=== PATIENT | female | born 1945 | race Caucasian/White ===

== ENCOUNTER 2016-12-07 16:20 | Emergency (ER) | payer OTHER ==
[2016-12-07 16:27] VITALS: BP 140/66; PULSE 94; TEMP 99; BMI 25.6
--- NOTE | 2016-12-07 17:16 | PDOC ---
History of Present Illness - General Chief Complaint: Injury Stated Complaint: FOOT INJURY Time Seen by Provider: 12/07/16 16:57 History Source: Patient Exam Limitations: No Limitations - History of Present Illness Initial Comments: 12/07/16 17:13 71 yr female with 3 days pain to right foot. pt unsure if she twisted her foot has pain to the side. no fever no chills. Occurred: reports: other (3 days) Past History - Past Medical History Allergies/Adverse Reactions: Allergies Allergy/AdvReac Type Severity Reaction Status Date / Time No Known Allergies Allergy Verified 12/07/16 16:23 Home Medications: Ambulatory Orders Amoxicillin - [Amoxicillin 500mg Capsule -] 500 mg PO TID 12/07/16 Thyroid Disease: Yes Other medical history: op - Suicide/Smoking/Psychosocial Hx Anxiety: No Suicidal Ideation: No Smoking History: Never smoked Have you smoked in the past 12 months: No Information on smoking cessation initiated: No Hx Alcohol Use: No Drug/Substance Use Hx: No Substance Use Type: None Review of Systems - Review of Systems Able to Perform ROS?: Yes Is the patient limited Colombian proficient: No Constitutional: No: Symptoms Reported HEENTM: No: Symptoms Reported Respiratory: No: Symptoms reported Cardiac (ROS): No: Symptoms Reported ABD/GI: No: Symptoms Reported : No: Symptoms Reported Musculoskeletal: Yes: See HPI *Physical Exam - Vital Signs Last Vital Signs Temp Pulse Resp BP Pulse Ox 99.0 F 94 H 18 140/66 100 12/07/16 16:24 12/07/16 16:24 12/07/16 16:24 12/07/16 16:24 12/07/16 16:24 - Physical Exam General Appearance: Yes: Nourished, Appropriately Dressed HEENT: positive: EOMI, ITZEL Extremity: positive: Normal Capillary Refill, Tender (base of fifth toe , nv intact FROm ) Integumentary: positive: Normal Color, Dry, Warm Neurologic: positive: Fully Oriented, Alert, Normal Mood/Affect, Normal Response , Motor Strength 5/5 Procedures - Splinting Progress: 12/07/16 18:00 ismael wrap hard sole shoe to right foot 12/07/16 19:13 12/10/16 07:13 ED Treatment Course - RADIOLOGY Radiology Studies Ordered: Category Date Time Status FOOT-RIGHT [RAD] Stat Radiology 12/07/16 17:04 Ordered Medical Decision Making - Medical Decision Making 12/10/16 07:12 cc: foot pain unsure of when injured will r/o fracture with xray pt is ambulatory with her daughter *DC/Admit/Observation/Transfer Diagnosis at time of Disposition: Foot fracture, right Qualifiers: Encounter type: initial encounter Fracture type: closed Qualified Code(s): S92.901A - Unspecified fracture of right foot, initial encounter for closed fracture - Discharge Dispostion Disposition: HOME Condition at time of disposition: Good - Referrals Referrals: Nunu Graham [Primary Care Provider] - Kvng Jarrett MD [Staff Physician] - Chito Rainey MD [Staff Physician] - - Patient Instructions Additional Instructions: follow with the orthopedist next week for follow up either or use the ismael wrap and the hard sole shoe while awake remove to bathe and sleep take motrin for pain as directed (over the counter advil, ibuprofen or motrin) or naprosyn if you already have at home
== END 2016-12-07 18:11 | disposition home or self-care (01) ==
LOC: JERFT 16:20
DX: S92.354A Nondisplaced fracture of fifth metatarsal bone, right foot, initial encounter for closed fracture (principal); X58.XXXA Exposure to other specified factors, initial encounter; Y93.9 Activity, unspecified; Y92.89 Other specified places as the place of occurrence of the external cause
CPT/HCPCS: 73630-TC-RT; 99281-25

== ENCOUNTER 2017-12-28 10:41 | Inpatient (IN) | payer MEDICARE, OTHER ==
--- NOTE | 2017-12-28 10:55 | PDOC ---
History of Present Illness - History of Present Illness Initial Comments: This patient is a 72 year old Mohawk speaking female with PMHx of Hypothyroidism, osteoarthritis, HLD, several broken bones (left humerus, left leg, right wrist-w/residual deformity), who was BIBA and presents today with right leg pain s/p mechanical fall. Patient states that she is visiting from [place] and normally comes every 3 months or so. She states that she was walking down the stairs when she missed the last step, falling on her right side. She is now complaining of RLE pain. She states that she normally ambulates without a walker or cane but is currently not able to ambulate, secondary to pain. She denies taking any anticoagulation medications. She denies any loss of consciousness, hitting her head. She denies any current headache, neck pain, or back pain. She denies recent fever, chills, palpitations , or shortness of breath. PCP: Paulino layne. Surgical Hx: Left leg and arm. <Roxy Brown - Last Filed: 12/28/17 11:30> <Melissa Mccann - Last Filed: 12/28/17 13:29> <Leandra Sifuentes - Last Filed: 12/28/17 13:32> - General Chief Complaint: Injury Stated Complaint: Injury Time Seen by Provider: 12/28/17 10:50 Past History <Roxy Brown - Last Filed: 12/28/17 11:30> <Melissa Mccann - Last Filed: 12/28/17 13:29> - Past Medical History Thyroid Disease: Yes - Suicide/Smoking/Psychosocial Hx Smoking History: Never smoked Have you smoked in the past 12 months: No Hx Alcohol Use: No Drug/Substance Use Hx: No Substance Use Type: None <Leandra Sifuentes - Last Filed: 12/28/17 13:32> - Past Medical History Allergies/Adverse Reactions: Allergies Allergy/AdvReac Type Severity Reaction Status Date / Time No Known Allergies Allergy Verified 12/28/17 11:00 Home Medications: Ambulatory Orders Amoxicillin - [Amoxicillin 500mg Capsule -] 500 mg PO TID 12/07/16 Review of Systems - Review of Systems Comments:: GENERAL/CONSTITUTIONAL: No fever or chills. No weakness. HEAD, EYES, EARS, NOSE AND THROAT: No change in vision. No ear pain or discharge. No sore throat. CARDIOVASCULAR: No chest pain or shortness of breath. RESPIRATORY: No cough, wheezing, or hemoptysis. GASTROINTESTINAL: No nausea, vomiting, diarrhea or constipation. GENITOURINARY: No dysuria, frequency, or change in urination. MUSCULOSKELETAL: +right leg pain. No neck or back pain. SKIN: No rash NEUROLOGIC: No headache, vertigo, loss of consciousness, or change in strength/ sensation. ENDOCRINE: No increased thirst. No abnormal weight change. HEMATOLOGIC/LYMPHATIC: No anemia, easy bleeding, or history of blood clots. ALLERGIC/IMMUNOLOGIC: No hives or skin allergy. <Roxy Brown - Last Filed: 12/28/17 11:30> *Physical Exam - Vital Signs Last Vital Signs Temp Pulse Resp BP Pulse Ox 99.3 F 71 18 143/74 143 H 12/28/17 10:45 12/28/17 10:45 12/28/17 10:45 12/28/17 10:45 12/28/17 10:45 - Physical Exam Comments: GENERAL: Awake, alert, and fully oriented, in no acute distress HEAD: No signs of trauma LUNGS: Breath sounds equal, clear to auscultation bilaterally. No wheezes, and no crackles HEART: Regular rate and rhythm, normal S1 and S2, no murmurs, rubs or gallops ABDOMEN: Soft, nontender, normoactive bowel sounds. No guarding, no rebound. No masses EXTREMITIES: Lower right extremity tenderness with log roll, tenderness to palpation of RLE specifically right lateral hip, femur and right knee. No edema. No clubbing or cyanosis. No cords, no erythema. NEUROLOGICAL: Cranial nerves II through XII grossly intact. Normal speech. Patient unable to ambulate, secondary to pain. SKIN: Warm, Dry, normal turgor, no rashes or lesions noted. <Roxy Brown - Last Filed: 12/28/17 11:30> - Vital Signs Last Vital Signs Temp Pulse Resp BP Pulse Ox 99.3 F 71 18 143/74 98 12/28/17 10:45 12/28/17 10:45 12/28/17 10:45 12/28/17 10:45 12/28/17 11:10 <Melissa Mccann - Last Filed: 12/28/17 13:29> Heart Score/ECG Review - ECG Intrepretation Comment:: 12/28/17 12:50 sinus at 65, l axis deviation, t wave inversions V2-3, abnl ekg <Leandra Sifuentes - Last Filed: 12/28/17 13:32> ED Treatment Course - LABORATORY CBC & Chemistry Diagram: 12/28/17 11:10 12/28/17 11:10 - ADDITIONAL ORDERS Additional order review: Laboratory Results 12/28/17 11:10 PT with INR 11.70 INR 0.99 PTT (Actin FS) 24.7 L 12/28/17 11:10 RBC 4.62 MCV 84.7 MCHC 32.7 RDW 15.0 MPV 7.8 Neutrophils % 65.6 Lymphocytes % 23.3 Monocytes % 9.4 Eosinophils % 1.0 Basophils % 0.7 <Roxy Brown - Last Filed: 12/28/17 11:30> - LABORATORY CBC & Chemistry Diagram: 12/28/17 11:10 12/28/17 11:10 - ADDITIONAL ORDERS Additional order review: Laboratory Results 12/28/17 12/28/17 11:10 11:10 PT with INR 11.70 INR 0.99 PTT (Actin FS) 24.7 L Sodium 138 Potassium 3.3 L Chloride 102 Carbon Dioxide 28 Anion Gap 7 L BUN 18 Creatinine 0.9 Creat Clearance w eGFR > 60 Random Glucose 168 H Calcium 7.8 L Total Bilirubin 0.4 AST 20 ALT 24 Alkaline Phosphatase 50 Total Protein 6.8 Albumin 3.1 L TSH 0.27 L 12/28/17 11:10 RBC 4.62 MCV 84.7 MCHC 32.7 RDW 15.0 MPV 7.8 Neutrophils % 65.6 Lymphocytes % 23.3 Monocytes % 9.4 Eosinophils % 1.0 Basophils % 0.7 - Medications Given in the ED: ED Medications Discontinued Medications Generic Name Dose Route Start Last Admin Trade Name Freq PRN Reason Stop Dose Admin Acetaminophen 1,000 mg 12/28/17 11:22 12/28/17 11:46 Ofirmev Injection - IVPB 12/28/17 11:23 1,000 mg ONCE ONE Administration Morphine Sulfate 2 mg 12/28/17 11:22 12/28/17 11:46 Morphine Injection - IVPUSH 12/28/17 11:23 2 mg ONCE ONE Administration <Melissa Mccann - Last Filed: 12/28/17 13:29> - LABORATORY CBC & Chemistry Diagram: 12/28/17 11:10 12/28/17 11:10 <Leandra Sifuentes - Last Filed: 12/28/17 13:32> Medical Decision Making - Medical Decision Making 12/28/17 12:47 Call placed to orthopedics data power consultant, case was discussed with SERGIO Lamar. 1:04pm Call placed to Dr. De Los Santos's office, data power consultant admitting doctor, awaiting call back. 1:30pm Call placed to Dr. De Los Santos's cell phone, case was discussed. Documentation prepared by Melissa Mccann, acting as medical practice manager for Leandra Sifuentes DO. <Melissa Mccann - Last Filed: 12/28/17 13:29> - Medical Decision Making 12/28/17 11:48 a/p: 72yo female with hx of osteoporosis and broken LLE/hypothyroid who is visiting from [place] presents with RLE pain -pt with mechanical fall at home. -states she was walking down the stairs when she missed the last step and fell on her R side -denies hitting her head or LOC -no neck or back pain -pt c/o RLE pain -pt with pain to R lateral hip/inner groin, distal femur -concern for hip/femur fx -will send preop labs, ekg, cxr, ua, ucx, silva -xray chest, hip/pelvis R/femur/knee right -pt is not on antiplts/anticoags -will medicate for pain 12/28/17 12:49 pt with midshaft femure fracture discussed with David the PA for ortho - NPO after midnight will see the patient today last po intake was 930a 12/28/17 13:08 david the ortho pa is at the bedside 12/28/17 13:[address] De Los Santos who accepts pt to service <Leandra Sifuentes - Last Filed: 12/28/17 13:32> *DC/Admit/Observation/Transfer - Attestations Scribe Attestion: 12/28/17 11:39 Documentation prepared by Roxy Brown, acting as medical practice manager for Leandra Sifuentes DO. <Roxy Brown - Last Filed: 12/28/17 11:30> <Melissa Mccann - Last Filed: 12/28/17 13:29> - Discharge Dispostion Decision to Admit order: Yes - Attestations Physician Attestion: 12/28/17 13:32 I, Dr. Leandra Sifuentes, DO, attest that this document has been prepared under my direction and personally reviewed by me in its entirety. I further attest, that it accurately reflects all work, treatment, procedures and medical decision -making performed by me. <Leandar Sifuentes - Last Filed: 12/28/17 13:32> Diagnosis at time of Disposition: Femur fracture, right - Discharge Dispostion Condition at time of disposition: Fair
[2017-12-28 11:14] LABS: BASO % 0.7 % (0-2.0); HEMATOCRIT 39.1 % (32.4-45.2); HEMOGLOBIN 12.8 GM/dL (10.7-15.3); LYMPH % 23.3 % (8-40); MCH 27.7 pg (25.7-33.7); MCHC 32.7 g/dl (32.0-36.0); MEAN CELL VOLUME 84.7 fl (80-96); MEAN PLT VOLUME 7.8 fl (7.5-11.1); MONO % 9.4 % (3.8-10.2); NEUT % 65.6 % (42.8-82.8); PLATELET COUNT 195 K/MM3 (134-434); RBC 4.62 M/mm3 (3.60-5.2); WHITE BLOOD COUNT 10.7 K/mm3 (4.0-10.0)
[2017-12-28] MEDS ORDERED: ACETAMINOPHEN 1000 MG/100 ML VIAL (NON FORMULARY) IVPB ONE (11:22)
[2017-12-28] MEDS ORDERED: morphine CARPU-JECT 2 MG/1 ML DISP.SYRIN IVPUSH ONE (11:22)
[2017-12-28 11:25] LABS: INR 0.99 (0.83-1.09); PROTHROMBIN TIME (PATIENT) 11.7 SEC (9.7-13.0)
[2017-12-28 11:27] LABS: ACTIVATED PTT 24.7 SECONDS (25.2-36.5)
[2017-12-28] MEDS ORDERED: morphine SULFATE 4 MG/ML VIAL ONE ×2 (11:41→15:32)
[2017-12-28 12:10] LABS: ALBUMIN 3.1 g/dl (3.4-5.0); ALK PHOS 50 U/L (45-117); ANION GAP 7 MMOL/L (8-16); BILIRUBIN,TOTAL 0.4 mg/dL (0.2-1); BLOOD UREA NITROGEN 18 mg/dL (7-18); CALCIUM 7.8 mg/dL (8.5-10.1); CHLORIDE 102 mmol/L (98-107); CO2 28 mmol/L (21-32); CREATININE 0.9 mg/dL (0.55-1.3); GLUCOSE,RANDOM 168 mg/dL (74-106); POTASSIUM 3.3 mmol/L (3.5-5.1); SGOT/AST 20 U/L (15-37); SGPT/ALT 24 U/L (13-61); SODIUM 138 mmol/L (136-145); TOT PROT 6.8 g/dl (6.4-8.2)
[2017-12-28] MEDS ORDERED: SODIUM CHLORIDE 0.9% 1000 ML INFUS.BAG IV ONE (12:50)
--- NOTE | 2017-12-28 13:15 | CON.ORTH ---
Consult Reason for Consultation:: right femur fx - Alcohol/Substance Use Hx Alcohol Use: No - Smoking History Smoking history: Never smoked Have you smoked in the past 12 months: No Home Medications - Allergies Allergies/Adverse Reactions: Allergies Allergy/AdvReac Type Severity Reaction Status Date / Time No Known Allergies Allergy Verified 12/28/17 11:00 - Home Medications Home Medications: Ambulatory Orders Amoxicillin - [Amoxicillin 500mg Capsule -] 500 mg PO TID 12/07/16 Physical Exam for Ortho Vital Signs: Vital Signs Temperature 99.3 F 12/28/17 10:45 Pulse Rate 71 12/28/17 10:45 Respiratory Rate 18 12/28/17 10:45 Blood Pressure 143/74 12/28/17 10:45 O2 Sat by Pulse Oximetry (%) 98 12/28/17 11:10 Labs: CBC, BMP 12/28/17 11:10 12/28/17 11:10 INR, PTT INR 0.99 (0.83-1.09) 12/28/17 11:10 - Lower Extremity Hip: Yes: Right, Decreased ROM, Leg Externally Rotated, Leg Shortened Leg: Yes: Right, Limited ROM, Pain, Swelling, Tenderness, Other (nvi) Imaging - Results X-ray: Report Reviewed, Image Reviewed Assessment/Plan 72 year old Bangladeshi speaking female with PMHx of Hypothyroidism, osteoarthritis , HLD, several broken bones (left humerus, left leg, right wrist-w/residual deformity), who was BIBA and presents today with right leg pain s/p mechanical fall. Patient states that she is visiting from [place] and normally comes every 3 months or so. She states that she was walking down the stairs when she missed the last step, falling on her right side. She is now complaining of RLE pain. She states that she normally ambulates without a walker or cane but is currently not able to ambulate, secondary to pain. She denies taking any anticoagulation medications. Denies numbness/tingling. a/p right displaced femoral shaft fx Risks and benefits were d/w pt and family in detail OR tomorrow for Right femur IM nail Surgical clearance NPO after midnight pain control d/w Dr. Arce
[2017-12-28 13:28] LABS: URINE APPEARANCE CLEAR; URINE BILIRUBIN NEGATIVE (<2.0 mg/dL); URINE COLOR STRAW; URINE GLUCOSE (UA) 1+ (NEGATIVE); URINE KETONE NEGATIVE (NEGATIVE); URINE LEUK ESTERASE NEGATIVE (NEGATIVE); URINE NITRITE NEGATIVE (NEGATIVE); URINE PROTEIN NEGATIVE (NEGATIVE); URINE UROBILINOGEN NEGATIVE mg/dL (0.2-1.0)
--- NOTE | 2017-12-28 15:23 | CON.CARD ---
Consult Consult Specialty:: Cardiology Referred by:: ER Reason for Consultation:: Pre-operative CV evaluation - History of Present Illness Chief Complaint: Post fall and right hip pain History of Present Illness: 72 year old Telugu speaking female with PMHx of Hypothyroidism, osteoarthritis , HLD, several broken bones (left humerus, left leg, right wrist-w/residual deformity), who was BIBA today with right leg pain s/p mechanical fall without near or true syncope. She states that she was walking down the stairs when she missed the last step, falling on her right side. She is now complaining of RLE pain. She states that she normally ambulates without a walker or cane but is currently not able to ambulate, secondary to pain. Regarding cardiovascular symptoms, she denies chest pain, dyspnea, near or true syncope, palpitations, orthopnea, PND, LE edema or decrease exercise capacity. - History Source History Provided By: Family Member Limitations to Obtaining History: Language Barrier - Alcohol/Substance Use Hx Alcohol Use: No - Smoking History Smoking history: Never smoked Have you smoked in the past 12 months: No Home Medications - Allergies Allergies/Adverse Reactions: Allergies Allergy/AdvReac Type Severity Reaction Status Date / Time No Known Allergies Allergy Verified 12/28/17 11:00 - Home Medications Home Medications: Ambulatory Orders Amoxicillin - [Amoxicillin 500mg Capsule -] 500 mg PO TID 12/07/16 Review of Systems - Review of Systems Constitutional: reports: No Symptoms Eyes: reports: No Symptoms Cardiovascular: reports: No Symptoms Respiratory: reports: No Symptoms Gastrointestinal: reports: No Symptoms Musculoskeletal: reports: Joint Pain Neurological: reports: No Symptoms Endocrine: reports: No Symptoms Vital Signs: Vital Signs Temperature 99.3 F 12/28/17 10:45 Pulse Rate 71 12/28/17 10:45 Respiratory Rate 18 12/28/17 10:45 Blood Pressure 143/74 12/28/17 10:45 O2 Sat by Pulse Oximetry (%) 98 12/28/17 11:10 Constitutional: Yes: No Distress, Calm Neck: Yes: Supple Respiratory: Yes: Regular, CTA Bilaterally Gastrointestinal: Yes: Normal Bowel Sounds, Soft Cardiovascular: Yes: Regular Rate and Rhythm JVD: No Carotid Bruit: No Heart Sounds: Yes: S1, S2 Extremities: Yes: External Rotation, Shortened Edema: No - Other Data Labs, Other Data: CBC, BMP 12/28/17 11:10 12/28/17 11:10 INR, PTT INR 0.99 (0.83-1.09) 12/28/17 11:10 Troponin, BNP 12/28/17 11:10 Troponin I < 0.02 Troponin, BNP 12/28/17 11:10 Troponin I < 0.02 NSR @ 65 LAD, nonspec T wave changes Problem List - Problems (1) Hypothyroidism Code(s): E03.9 - HYPOTHYROIDISM, UNSPECIFIED Qualifiers: Hypothyroidism type: unspecified Qualified Code(s): E03.9 - Hypothyroidism , unspecified (2) Pre-operative cardiovascular examination Code(s): Z01.810 - ENCOUNTER FOR PREPROCEDURAL CARDIOVASCULAR EXAMINATION (3) Abnormal EKG Code(s): R94.31 - ABNORMAL ELECTROCARDIOGRAM [ECG] [EKG] (4) Femur fracture, right Code(s): S72.91XA - UNSP FRACTURE OF RIGHT FEMUR, INIT FOR CLOS FX Qualifiers: Encounter type: initial encounter Fracture type: closed Assessment/Plan 1. Pre-operative CV evaluation prior to right femur IM nail for right displaced femoral shaft fx 2. Hypothyroidism 3. Abnormal ECG P:1. Given absence of symptoms of acute coronary syndrome, decompensated CHF or malignant arrhythmia, may proceed with ortho surgery from CV-standpoint without further testing 2. Analgesia as needed, DVT prophylaxis 3. Plan for right femur IM nail tomorrow 4. Thank you for consultative opportunity
[2017-12-28] MEDS ORDERED: morphine CARPU-JECT 4 MG/1 ML DISP.SYRIN IVPUSH ONE (15:32)
--- NOTE | 2017-12-28 15:33 | EKG ---
Test Reason : Blood Pressure : / mmHG Vent. Rate : 065 BPM Atrial Rate : 065 BPM P-R Int : 156 ms QRS Dur : 090 ms QT Int : 428 ms P-R-T Axes : 057 -37 028 degrees QTc Int : 445 ms NORMAL SINUS RHYTHM LEFT AXIS DEVIATION T WAVE ABNORMALITY, CONSIDER ANTERIOR ISCHEMIA ABNORMAL ECG NO PREVIOUS ECGS AVAILABLE Confirmed by ISAIAH LYONS MD ([id number]) on 12/28/2017 3:33:39 PM Referred By: Confirmed By:ISAIAH LYONS MD
--- NOTE | 2017-12-28 18:52 | HP ---
Admitting History and Physical - Primary Care Physician PCP: Sarina De Los Santos - Admission Chief Complaint: fall History of Present Illness: 72 year old Macedonian speaking female with PMHx of Hypothyroidism, osteoarthritis , HLD, several broken bones (left humerus, left leg, right wrist-w/residual deformity), who was BIBA and presents today with right leg pain s/p mechanical fall. Patient states that she is visiting from [place] and normally comes every 3 months or so. She states that she was walking down the stairs when she missed the last step, falling on her right side. She is now complaining of RLE pain. She states that she normally ambulates without a walker or cane but is currently not able to ambulate, secondary to pain. She denies taking any anticoagulation medications. - Past Medical History Endocrine: Yes: Hypothyroidism - Smoking History Smoking history: Never smoked Have you smoked in the past 12 months: No - Alcohol/Substance Use Hx Alcohol Use: No Home Medications - Allergies Allergies/Adverse Reactions: Allergies Allergy/AdvReac Type Severity Reaction Status Date / Time No Known Allergies Allergy Verified 12/28/17 11:00 - Home Medications Home Medications: Ambulatory Orders Alendronate Sodium [Binosto] 70 mg PO WEEKLY 12/29/17 Levothyroxine [Synthroid -] 100 mcg PO DAILY 12/29/17 Enoxaparin [Lovenox -] 40 mg SQ DAILY disp.syrin 12/30/17 Physical Examination Vital Signs: Vital Signs Temperature 98.0 F 12/28/17 18:21 Pulse Rate 60 12/28/17 18:21 Respiratory Rate 18 12/28/17 18:21 Blood Pressure 108/60 12/28/17 18:21 O2 Sat by Pulse Oximetry (%) 98 12/28/17 18:21 Constitutional: Yes: No Distress Neck: Yes: Supple Cardiovascular: Yes: Regular Rate and Rhythm Respiratory: Yes: CTA Bilaterally Gastrointestinal: Yes: Normal Bowel Sounds Extremities: Yes: Internal Rotation (rlex) Edema: Yes Edema: RLE: Trace Peripheral Pulses WNL: Yes Neurological: Yes: Alert, Oriented Labs: CBC, BMP 12/28/17 11:10 12/28/17 11:10 Imaging - Results X-ray: Report Reviewed Problem List - Problems (1) Femur fracture, right Assessment/Plan: for OR npo, ivf, prn pain meds need cardiology clearance Code(s): S72.91XA - UNSP FRACTURE OF RIGHT FEMUR, INIT FOR CLOS FX Qualifiers: Encounter type: initial encounter Fracture type: closed (2) Hypothyroidism Assessment/Plan: on meds stable Code(s): E03.9 - HYPOTHYROIDISM, UNSPECIFIED Qualifiers: Hypothyroidism type: unspecified Qualified Code(s): E03.9 - Hypothyroidism , unspecified Assessment/Plan Laboratory Tests 12/28/17 12/28/17 12/28/17 11:10 11:10 11:10 WBC 10.7 H RBC 4.62 Hgb 12.8 Hct 39.1 MCV 84.7 MCH 27.7 MCHC 32.7 RDW 15.0 Plt Count 195 MPV 7.8 Absolute Neuts (auto) 7.0 Neutrophils % 65.6 Lymphocytes % 23.3 Monocytes % 9.4 Eosinophils % 1.0 Basophils % 0.7 Nucleated RBC % 0 PT with INR 11.70 INR 0.99 PTT (Actin FS) 24.7 L Sodium 138 Potassium 3.3 L Chloride 102 Carbon Dioxide 28 Anion Gap 7 L BUN 18 Creatinine 0.9 Creat Clearance w eGFR > 60 Random Glucose 168 H Calcium 7.8 L Total Bilirubin 0.4 AST 20 ALT 24 Alkaline Phosphatase 50 Creatine Kinase 114 Troponin I < 0.02 Total Protein 6.8 Albumin 3.1 L TSH 0.27 L Free T4 1.43 Urine Color Urine Appearance Urine pH Ur Specific [place] Urine Protein Urine Glucose (UA) Urine Ketones Urine Blood Urine Nitrite Urine Bilirubin Urine Urobilinogen Ur Leukocyte Esterase Blood Type Antibody Screen 12/28/17 12/28/17 12/28/17 11:10 13:13 13:18 WBC RBC Hgb Hct MCV MCH MCHC RDW Plt Count MPV Absolute Neuts (auto) Neutrophils % Lymphocytes % Monocytes % Eosinophils % Basophils % Nucleated RBC % PT with INR INR PTT (Actin FS) Sodium Potassium Chloride Carbon Dioxide Anion Gap BUN Creatinine Creat Clearance w eGFR Random Glucose Calcium Total Bilirubin AST ALT Alkaline Phosphatase Creatine Kinase Troponin I Total Protein Albumin TSH Free T4 Urine Color Straw Urine Appearance Clear Urine pH 6.0 Ur Specific [place] 1.014 Urine Protein Negative Urine Glucose (UA) 1+ H Urine Ketones Negative Urine Blood Negative Urine Nitrite Negative Urine Bilirubin Negative Urine Urobilinogen Negative Ur Leukocyte Esterase Negative Blood Type O POSITIVE O POSITIVE Antibody Screen Negative Active Medications Generic Name Dose Route Start Last Admin Trade Name Freq PRN Reason Stop Dose Admin Acetaminophen 325 mg 12/29/17 18:10 12/29/17 19:38 Tylenol - PO 01/01/18 18:09 325 mg Q4H PRN Administration PAIN 1-5 Acetaminophen 650 mg 12/29/17 18:10 12/31/17 14:49 Tylenol - PO 01/01/18 18:09 650 mg Q4H PRN Administration PAIN 6-10 Enoxaparin Sodium 40 mg 12/30/17 10:00 12/31/17 09:48 Lovenox - SQ 40 mg DAILY BARBARA Administration Sodium Chloride 1,000 mls @ 75 mls/hr 12/29/17 18:15 12/31/17 14:49 1/2 Normal Saline IV 75 mls/hr ASDIR BARBARA Administration Levothyroxine Sodium 100 mcg 12/29/17 18:00 12/31/17 06:27 Synthroid - PO 100 mcg 0700 BARBARA Administration Ondansetron HCl 4 mg 12/29/17 19:13 12/31/17 12:23 Zofran Injection IVPB 4 mg Q4H PRN Administration NAUSEA AND/OR VOMITING Oxycodone HCl 5 mg 12/29/17 18:10 12/29/17 19:38 Roxicodone - PO 5 mg Q4H PRN Administration PAIN 1-5 Oxycodone HCl 10 mg 12/29/17 18:10 12/31/17 09:49 Roxicodone - PO 10 mg Q4H PRN Administration PAIN 6-10
[2017-12-28] MEDS ORDERED: ONDANSETRON 4 MG/2 ML VIAL IVPUSH ONE (19:31)
[2017-12-28] MEDS ORDERED: MORPHINE SULFATE 2 MG/ML VIAL ONE (19:34)
[2017-12-28] MEDS ORDERED: ONDANSETRON 4 MG/2 ML VIAL ONE (19:34)
[2017-12-28] MEDS ORDERED: HEPARIN NA (PORCINE) 5,000 UNITS/ML 1ML VIAL ONE (19:34)
[2017-12-28] MEDS: MORPHINE SULFATE 2 MG/ML VIAL IVPUSH PRN ×2 (19:44→23:18)
[2017-12-28] MEDS: HEPARIN NA (PORCINE) 5,000 UNITS/ML 1ML VIAL SQ SCH (21:14)
[2017-12-29 00:17] VITALS: BMI 26.7
[2017-12-29] MEDS: MORPHINE SULFATE 2 MG/ML VIAL IVPUSH PRN ×2 (06:47→12:47)
[2017-12-29] MEDS: HEPARIN NA (PORCINE) 5,000 UNITS/ML 1ML VIAL SQ SCH (09:47)
[2017-12-29] MEDS ORDERED: MORPHINE SULFATE 2 MG/ML VIAL IVPUSH ONE (10:00)
[2017-12-29] MEDS ORDERED: SODIUM CHLORIDE 1,000 ML IV SCH (10:00)
[2017-12-29] MEDS: KCL 10 MEQ IVPB 10 MEQ/100 ML INFUS.BAG IVPB SCH ×2 (10:06→12:48)
--- NOTE | 2017-12-29 14:23 | PN ---
Progress Note, Physician Chief Complaint: Events noted Not in distress History of Present Illness: Patient was seen and examined. Awake and alert. Chart was reviewed Denies chest pain, SOB or palpitations - Current Medication List Current Medications: Active Medications Heparin Sodium (Porcine) (Heparin -) 5,000 unit SQ BID [facility] Last Admin: 12/29/17 09:47 Dose: Not Given Sodium Chloride (Normal Saline -) 1,000 mls @ 75 mls/hr IV ASDIR [facility] Last Admin: 12/29/17 10:06 Dose: 75 mls/hr Morphine Sulfate (Morphine Sulfate) 2 mg IVPUSH Q4H PRN PRN Reason: PAIN LEVEL 4 - 6 Last Admin: 12/29/17 12:47 Dose: 2 mg - Objective Vital Signs: Vital Signs Temperature 99.5 F 12/29/17 08:29 Pulse Rate 72 12/29/17 08:29 Respiratory Rate 20 12/29/17 08:29 Blood Pressure 116/63 12/29/17 08:29 O2 Sat by Pulse Oximetry (%) 93 L 12/29/17 09:00 Eyes: Yes: PERRL HENT: Yes: Atraumatic Neck: Yes: Supple Cardiovascular: Yes: Regular Rate and Rhythm, S1, S2 Respiratory: Yes: CTA Bilaterally Gastrointestinal: Yes: Normal Bowel Sounds, Soft. No: Tenderness Edema: No Labs: CBC, BMP 12/28/17 11:10 12/28/17 11:10 INR, PTT INR 0.99 (0.83-1.09) 12/28/17 11:10 Problem List - Problems (1) Femur fracture, right Code(s): S72.91XA - UNSP FRACTURE OF RIGHT FEMUR, INIT FOR CLOS FX Qualifiers: Encounter type: initial encounter Fracture type: closed (2) Hypothyroidism Code(s): E03.9 - HYPOTHYROIDISM, UNSPECIFIED Qualifiers: Hypothyroidism type: unspecified Qualified Code(s): E03.9 - Hypothyroidism , unspecified (3) Pre-operative cardiovascular examination Code(s): Z01.810 - ENCOUNTER FOR PREPROCEDURAL CARDIOVASCULAR EXAMINATION Assessment/Plan 1. Pre-operative CV evaluation prior to right femur IM nail for right displaced femoral shaft fracture 2. Hypothyroidism 3. Abnormal ECG PLAN: 1. No absolute contraindication in proceeding with surgery in view of absence of ischemic symptoms, decompensated congestive heart failure or malignant arrhythmias. 2. Analgesia as needed, DVT prophylaxis 3. Plan for right femur IM nail today Further plans are to follow David Bustos MD
[2017-12-29] MEDS ORDERED: ceFAZolin SODIUM 1 GM VIAL ONE ×3 (15:20→22:44)
[2017-12-29] MEDS ORDERED: LIDOCAINE HCL/PF 2% SDV 5ML VIAL ONE (15:20)
[2017-12-29] MEDS ORDERED: PROPOFOL 20 ML ONE (15:20)
[2017-12-29] MEDS ORDERED: ceFAZolin SODIUM 1 GM VIAL IVPB ONE ×2 (15:22)
[2017-12-29] MEDS ORDERED: ePHEDrine SULFATE 50 MG/1 ML AMPULE ONE (15:52)
--- NOTE | 2017-12-29 16:08 | PN ---
Progress Note, Physician - Current Medication List Current Medications: Active Medications Heparin Sodium (Porcine) (Heparin -) 5,000 unit SQ BID [facility] Last Admin: 12/29/17 09:47 Dose: Not Given Sodium Chloride (Normal Saline -) 1,000 mls @ 75 mls/hr IV ASDIR [facility] Last Admin: 12/29/17 10:06 Dose: 75 mls/hr Morphine Sulfate (Morphine Sulfate) 2 mg IVPUSH Q4H PRN PRN Reason: PAIN LEVEL 4 - 6 Last Admin: 12/29/17 12:47 Dose: 2 mg - Objective Vital Signs: Vital Signs Temperature 99.1 F 12/29/17 14:48 Pulse Rate 77 12/29/17 14:48 Respiratory Rate 20 12/29/17 14:48 Blood Pressure 123/76 12/29/17 14:48 O2 Sat by Pulse Oximetry (%) 93 L 12/29/17 09:00 HENT: Yes: Atraumatic Neck: Yes: Supple Cardiovascular: Yes: Regular Rate and Rhythm Respiratory: Yes: CTA Bilaterally Gastrointestinal: Yes: Normal Bowel Sounds Edema: No Peripheral Pulses WNL: Yes Neurological: Yes: Alert, Oriented Labs: CBC, BMP 12/28/17 11:10 12/28/17 11:10 INR, PTT INR 0.99 (0.83-1.09) 12/28/17 11:10 Problem List - Problems (1) Femur fracture, right Assessment/Plan: for OR today npo, ivf, prn pain meds Code(s): S72.91XA - UNSP FRACTURE OF RIGHT FEMUR, INIT FOR CLOS FX Qualifiers: Encounter type: initial encounter Fracture type: closed (2) Hypothyroidism Assessment/Plan: on meds stable Code(s): E03.9 - HYPOTHYROIDISM, UNSPECIFIED Qualifiers: Hypothyroidism type: unspecified Qualified Code(s): E03.9 - Hypothyroidism , unspecified
[2017-12-29] MEDS ORDERED: ONDANSETRON 4 MG/2 ML VIAL ONE (16:45)
[2017-12-29] MEDS ORDERED: KETOROLAC TROMETHAMINE 30 MG/1 ML VIAL ONE (16:46)
[2017-12-29] MEDS ORDERED: DEXAMETHASONE SOD PHOSPHATE 4 MG/1 ML VIAL ONE (16:46)
[2017-12-29] MEDS ORDERED: oxyCODONE HCL 5 MG TABLET PO PRN ×2 (16:54→18:10)
[2017-12-29] MEDS ORDERED: ONDANSETRON 4 MG/2 ML VIAL IVPUSH PRN (16:54)
[2017-12-29] MEDS ORDERED: PROMETHAZINE HCL 25 MG/1 ML VIAL IVPB PRN (16:54)
[2017-12-29] MEDS ORDERED: LACTATED RINGERS SOLUTION 1,000 ML IV SCH (17:00)
--- NOTE | 2017-12-29 17:03 | OP ---
Operative Note - Note: Operative Date: 12/29/17 Pre-Operative Diagnosis: right femoral shaft fracture Operation: right femur ORIF with an intra medullary lanre, Long Gamma Nail Implants: Dinorah Long Gamma Nail, 90mm proximal lag screw, 45mm distal locking screw Surgeon: Josh Arce Weather Forecaster: Clifford Dow Anesthesiologist/[employer] OBSERVER: Caio Ramirez Anesthesia: General Estimated Blood Loss (mls): 75 Drains, Volume Out (mls): 0 Blood Volume Replaced (mls): 0 Fluid Volume Replaced (mls): 1,000 Operative Report Dictated: Yes
[2017-12-29] MEDS ORDERED: ACETAMINOPHEN 325 MG TABLET (FP) PO PRN (18:10)
[2017-12-29] MEDS: SODIUM CHLORIDE 0.45% 1,000 ML IV SCH (18:25)
[2017-12-29] MEDS: LEVOTHYROXINE NA 100 MCG TABLET (FP) PO SCH (18:27)
[2017-12-29] MEDS: ONDANSETRON 4 MG/2 ML VIAL IVPB PRN (19:34)
[2017-12-29] MEDS ORDERED: DEXTROSE 5%-WATER - 50 ML IVPB ONE (22:44)
[2017-12-29] MEDS: CEFAZOLIN 1 GM in DEXTROSE 5%-WATER - 50 ML IVPB SCH (22:45)
[2017-12-30] MEDS: ACETAMINOPHEN 325 MG TABLET (FP) PO PRN ×4 (02:08→14:48)
[2017-12-30] MEDS: oxyCODONE HCL 5 MG TABLET PO PRN ×4 (02:08→14:48)
[2017-12-30] MEDS: SODIUM CHLORIDE 0.45% 1,000 ML IV SCH (06:16)
[2017-12-30] MEDS: LEVOTHYROXINE NA 100 MCG TABLET (FP) PO SCH (06:19)
[2017-12-30] MEDS: CEFAZOLIN 1 GM in DEXTROSE 5%-WATER - 50 ML IVPB SCH ×2 (06:57→14:46)
[2017-12-30 07:48] LABS: BASO % 0.1 % (0-2.0); HEMATOCRIT 31.6 % (32.4-45.2); HEMOGLOBIN 10.1 GM/dL (10.7-15.3); LYMPH % 7.5 % (8-40); MCHC 32.1 g/dl (32.0-36.0); MEAN CELL VOLUME 84.3 fl (80-96); MEAN PLT VOLUME 7.6 fl (7.5-11.1); MONO % 13.3 % (3.8-10.2); NEUT % 79.1 % (42.8-82.8); PLATELET COUNT 169 K/MM3 (134-434); RBC 3.75 M/mm3 (3.60-5.2); RDW 14.7 % (11.6-15.6)
[2017-12-30 08:31] LABS: ALBUMIN 2.3 g/dl (3.4-5.0); ALK PHOS 40 U/L (45-117); ANION GAP 6 MMOL/L (8-16); BILIRUBIN,TOTAL 0.8 mg/dL (0.2-1); BLOOD UREA NITROGEN 11 mg/dL (7-18); CALCIUM 7.6 mg/dL (8.5-10.1); CHLORIDE 105 mmol/L (98-107); CO2 26 mmol/L (21-32); CREATININE 0.7 mg/dL (0.55-1.3); GLUCOSE,RANDOM 136 mg/dL (74-106); POTASSIUM 4.1 mmol/L (3.5-5.1); SGOT/AST 17 U/L (15-37); SGPT/ALT 18 U/L (13-61); SODIUM 137 mmol/L (136-145); TOT PROT 5.6 g/dl (6.4-8.2)
[2017-12-30] MEDS: ENOXAPARIN NA (PORCINE) 40 MG/0.4 ML DISP.SYRIN SQ SCH (10:00)
--- NOTE | 2017-12-30 10:55 | PN ---
Progress Note (short form) - Note Progress Note: Anesthesia POD#1 S/P Gamma Nail Right under GA VSS,feels dizzy,pain is moderate,no vomiting but nausious. Ask to drink a lot of fluids and pain medicine. Casi Franklin MD.
--- NOTE | 2017-12-30 13:59 | PN ---
Progress Note (short form) - Note Progress Note: Pt seen and examined. She is doing well on POD #1 s/p right femur fracture ORIF with long Gamma Nail. She c/o of being a little "dizzy", is tolerating POs, I think she may be taking too much pain medicine. AVSS H/H stable at 01/20 RLE Dressing CDI Grossly NVI, not making much of an effort to move No swelling Imp Doing well on POD #1. I rec limiting pain medicine P.T. as tolerated DC planning, SWS
--- NOTE | 2017-12-30 14:13 | PN ---
Progress Note, Physician History of Present Illness: POD#1 right femur ORIF with an intramedullary lanre, Long Gamma Nail, pain adequately controlled, denies chest pain or dyspne, reports dizziness. - Current Medication List Current Medications: Active Medications Acetaminophen (Tylenol -) 325 mg PO Q4H PRN PRN Reason: PAIN 1-5 Stop: 01/01/18 18:09 Last Admin: 12/29/17 19:38 Dose: 325 mg Acetaminophen (Tylenol -) 650 mg PO Q4H PRN PRN Reason: PAIN 6-10 Stop: 01/01/18 18:09 Last Admin: 12/30/17 10:54 Dose: 650 mg Enoxaparin Sodium (Lovenox -) 40 mg SQ DAILY [facility] Last Admin: 12/30/17 10:00 Dose: 40 mg Sodium Chloride (1/2 Normal Saline) 1,000 mls @ 75 mls/hr IV ASDIR [facility] Last Admin: 12/30/17 06:16 Dose: 75 mls/hr Cefazolin Sodium 1 gm/ (Dextrose) 50 mls @ 100 mls/hr IVPB Q8H [facility] Stop: 12/30/17 15:59 Last Admin: 12/30/17 06:57 Dose: 100 mls/hr Levothyroxine Sodium (Synthroid -) 100 mcg PO 0700 [facility] Last Admin: 12/30/17 06:19 Dose: 100 mcg Ondansetron HCl (Zofran Injection) 4 mg IVPB Q4H PRN PRN Reason: NAUSEA AND/OR VOMITING Last Admin: 12/29/17 19:34 Dose: 4 mg Oxycodone HCl (Roxicodone -) 5 mg PO Q4H PRN PRN Reason: PAIN 1-5 Last Admin: 12/29/17 19:38 Dose: 5 mg Oxycodone HCl (Roxicodone -) 10 mg PO Q4H PRN PRN Reason: PAIN 6-10 Last Admin: 12/30/17 10:54 Dose: 10 mg - Objective Vital Signs: Vital Signs Temperature 98.7 F 12/30/17 06:32 Pulse Rate 71 12/30/17 10:00 Respiratory Rate 18 12/30/17 10:00 Blood Pressure 93/60 12/30/17 10:00 O2 Sat by Pulse Oximetry (%) 99 12/30/17 09:00 Constitutional: Yes: No Distress, Calm Neck: Yes: Supple Cardiovascular: Yes: Regular Rate and Rhythm Respiratory: Yes: Regular, Diminished Gastrointestinal: Yes: Normal Bowel Sounds, Soft Edema: No Labs: CBC, BMP 12/30/17 07:25 12/30/17 07:25 INR, PTT INR 0.99 (0.83-1.09) 12/28/17 11:10 Problem List - Problems (1) Hypothyroidism Code(s): E03.9 - HYPOTHYROIDISM, UNSPECIFIED Qualifiers: Hypothyroidism type: unspecified Qualified Code(s): E03.9 - Hypothyroidism , unspecified (2) Abnormal EKG Code(s): R94.31 - ABNORMAL ELECTROCARDIOGRAM [ECG] [EKG] (3) Femur fracture, right Code(s): S72.91XA - UNSP FRACTURE OF RIGHT FEMUR, INIT FOR CLOS FX Qualifiers: Encounter type: initial encounter Fracture type: closed Assessment/Plan 1. POD#1 right femur ORIF with an intra medullary lanre, Long Gamma Nail 2. Hypothyroidism 3. Abnormal ECG P: 1. Analgesia as needed, DVT prophylaxis 2. WBAT, PT as tolerated
[2017-12-30] MEDS ORDERED: ceFAZolin SODIUM 1 GM VIAL ONE (14:41)
[2017-12-30] MEDS ORDERED: DEXTROSE 5%-WATER - 50 ML IVPB ONE (14:42)
--- NOTE | 2017-12-30 15:50 | SPEC ---
DATE OF OPERATION: 12/28/2017 OPERATION: Right femur open reduction, internal fixation with intramedullary nail/long Gamma nail. PREOPERATIVE DIAGNOSIS: Right midshaft femur fracture. POSTOPERATIVE DIAGNOSIS: Right midshaft femur fracture. SURGEON: Josh Arce M.D. GAS MAKER HELPER: Clifford Dow MD ANESTHESIOLOGIST: Caio Ramirez MD ANESTHESIA: LMA. DRAINS: None. COMPLICATIONS: None. FLUID REPLACEMENT: 1000 mL. SPECIMENS: None. IMPLANTS: Dinorah long Gamma nail, titanium lanre, 90-mm proximal lag screw, 45-mm distal interlocking screw. INDICATIONS: This patient is a 72-year-old female with a preoperative diagnosis of a right midshaft femur fracture. After she and her family understood the potential risks, complications, alternatives, and benefits of surgery versus nonsurgical treatment, they elected to undergo this procedure. PROCEDURE: Patient was brought to the operating room. Peripheral IV placed, IV sedation given. One gram of IV Ancef was given. General anesthesia was induced. The patient had ample Webril placed around the peroneal post in both ankles. The patient was placed onto the fracture table with a slight longitudinal traction and internal rotation. X-rays were taken documenting excellent reduction of the fracture in the AP and lateral planes. Next, an incision was made over the proximal aspect of the greater trochanter. Subcutaneous hemostasis was achieved with a Bovie cautery, dissection done through the lateral fascia to the top of the greater trochanter. A Elmore elevator was used to take off the soft tissue from the starting point. Under direct visualization a partially threaded guide-wire was placed through the standard starting position, into the proximal femur, passed the fracture fragment into the medullary canal. It was documented to be in excellent position in AP, lateral and multiple oblique planes. Next, we used the proximal 17 mm cannulated reamer and put in a long titanium Dinorah Gamma 3 125 degree, 180 mm trochanteric nail. This was put in cannulated fashion to appropriate depth and using the external guide in a standard fashion, first using external jig, using a threaded guide-wire, replaced the lag screw, guide pin to the lateral aspect of the femur. The prosthesis and up to the femoral neck and head, looked to be in excellent position in a center central position, perhaps slightly posterior and slightly inferior in both AP and lateral planes. We measured it at an 80 mm screw. The cannulated drill was used to drill it to this leg and then we put in an 90 mm titanium lag screw. We achieved excellent compression and overall the position of the hardware in the fracture fragments looked excellent. We locked it in place with a proximal set screw, we altered the external jig to the static position and using the standard technique put in a distal interlocking screw under direct visualization of 45 mm in length. This locked the nail distally. We removed the external jig. We repeated x-rays in AP, lateral and multiple oblique planes and overall I was quite happy with the position of the fracture reduction, the length of the screw, the position of the hardware. Final x-rays were taken. The area was copiously irrigated and washed out. The deep fascial layer was closed with 0 Vicryl sutures. The deep dermal layer was closed with 2-0 Vicryl. Final skin approximation was done with neno. The area was then washed and dried, covered with Xeroform gauze, 4 x 4 gauze, ABD and tape. Patient was taken down off the fracture table in stable condition. There were no complications during the case. Total operative time was about 40 minutes. Jennifer [id number]
--- NOTE | 2017-12-30 17:45 | PN ---
Progress Note, Physician - Current Medication List Current Medications: Active Medications Acetaminophen (Tylenol -) 325 mg PO Q4H PRN PRN Reason: PAIN 1-5 Stop: 01/01/18 18:09 Last Admin: 12/29/17 19:38 Dose: 325 mg Acetaminophen (Tylenol -) 650 mg PO Q4H PRN PRN Reason: PAIN 6-10 Stop: 01/01/18 18:09 Last Admin: 12/30/17 14:48 Dose: 650 mg Enoxaparin Sodium (Lovenox -) 40 mg SQ DAILY [facility] Last Admin: 12/30/17 10:00 Dose: 40 mg Sodium Chloride (1/2 Normal Saline) 1,000 mls @ 75 mls/hr IV ASDIR [facility] Last Admin: 12/30/17 06:16 Dose: 75 mls/hr Levothyroxine Sodium (Synthroid -) 100 mcg PO 0700 [facility] Last Admin: 12/30/17 06:19 Dose: 100 mcg Ondansetron HCl (Zofran Injection) 4 mg IVPB Q4H PRN PRN Reason: NAUSEA AND/OR VOMITING Last Admin: 12/29/17 19:34 Dose: 4 mg Oxycodone HCl (Roxicodone -) 5 mg PO Q4H PRN PRN Reason: PAIN 1-5 Last Admin: 12/29/17 19:38 Dose: 5 mg Oxycodone HCl (Roxicodone -) 10 mg PO Q4H PRN PRN Reason: PAIN 6-10 Last Admin: 12/30/17 14:48 Dose: 10 mg - Objective Vital Signs: Vital Signs Temperature 98.1 F 12/30/17 14:00 Pulse Rate 76 12/30/17 14:00 Respiratory Rate 20 12/30/17 14:00 Blood Pressure 94/56 L 12/30/17 14:00 O2 Sat by Pulse Oximetry (%) 99 12/30/17 09:00 Constitutional: Yes: No Distress HENT: Yes: Atraumatic Neck: Yes: Supple Cardiovascular: Yes: Regular Rate and Rhythm Respiratory: Yes: CTA Bilaterally Gastrointestinal: Yes: Normal Bowel Sounds Extremities: Yes: Other (R lele surgery site clean) Edema: Yes Edema: RLE: 1+ Neurological: Yes: Alert, Oriented Labs: CBC, BMP 12/30/17 07:25 12/30/17 07:25 INR, PTT INR 0.99 (0.83-1.09) 12/28/17 11:10 Problem List - Problems (1) Femur fracture, right Assessment/Plan: s/p surgery doing well for snf Code(s): S72.91XA - UNSP FRACTURE OF RIGHT FEMUR, INIT FOR CLOS FX Qualifiers: Encounter type: initial encounter Fracture type: closed (2) Hypothyroidism Assessment/Plan: on meds stable Code(s): E03.9 - HYPOTHYROIDISM, UNSPECIFIED Qualifiers: Hypothyroidism type: unspecified Qualified Code(s): E03.9 - Hypothyroidism , unspecified
--- NOTE | 2017-12-30 23:11 | DS ---
Physical Examination Vital Signs: Vital Signs Temperature 98.1 F 12/30/17 14:00 Pulse Rate 76 12/30/17 14:00 Respiratory Rate 20 12/30/17 14:00 Blood Pressure 94/56 L 12/30/17 14:00 O2 Sat by Pulse Oximetry (%) 99 12/30/17 09:00 Labs: CBC, BMP 12/30/17 07:25 12/30/17 07:25 Discharge Summary Reason For Visit: FRACTURE OF RIGHT FEMUR Current Active Problems Abnormal EKG (Acute) Femur fracture, right (Acute) Hypothyroidism (Acute) Pre-operative cardiovascular examination (Acute) Condition: Fair - Instructions - Home Medications Comprehensive Discharge Medication List: Ambulatory Orders Alendronate Sodium [Binosto] 70 mg PO WEEKLY 12/29/17 Levothyroxine [Synthroid -] 100 mcg PO DAILY 12/29/17 Enoxaparin [Lovenox -] 40 mg SQ DAILY disp.syrin 12/30/17 dc snf
[2017-12-31] MEDS: SODIUM CHLORIDE 0.45% 1,000 ML IV SCH ×2 (01:19→14:49)
[2017-12-31] MEDS: oxyCODONE HCL 5 MG TABLET PO PRN ×2 (04:21→09:49)
[2017-12-31] MEDS: LEVOTHYROXINE NA 100 MCG TABLET (FP) PO SCH (06:27)
[2017-12-31] MEDS: ENOXAPARIN NA (PORCINE) 40 MG/0.4 ML DISP.SYRIN SQ SCH (09:48)
--- NOTE | 2017-12-31 10:35 | PN ---
Progress Note (short form) - Note Progress Note: Ortho Pt seen and examined s/p right IM gamma nail Selected Entries 12/31/17 05:43 Temperature 98.8 F Pulse Rate 89 Respiratory 18 Rate Blood Pressure 120/65 Laboratory Tests 12/30/17 07:25 WBC 13.0 H Hgb 10.1 L Hct 31.6 L D Plt Count 169 dressing c/d/i, calf soft, nt nvi a/p PT dvt ppx pain control d/c planning
--- NOTE | 2017-12-31 11:01 | PN ---
Progress Note, Physician History of Present Illness: POD#2 right femur ORIF with an intramedullary lanre, Long Gamma Nail, pain adequately controlled, denies chest pain or dyspnea, dizziness resolved. - Current Medication List Current Medications: Active Medications Acetaminophen (Tylenol -) 325 mg PO Q4H PRN PRN Reason: PAIN 1-5 Stop: 01/01/18 18:09 Last Admin: 12/29/17 19:38 Dose: 325 mg Acetaminophen (Tylenol -) 650 mg PO Q4H PRN PRN Reason: PAIN 6-10 Stop: 01/01/18 18:09 Last Admin: 12/30/17 14:48 Dose: 650 mg Enoxaparin Sodium (Lovenox -) 40 mg SQ DAILY [facility] Last Admin: 12/31/17 09:48 Dose: 40 mg Sodium Chloride (1/2 Normal Saline) 1,000 mls @ 75 mls/hr IV ASDIR [facility] Last Admin: 12/31/17 01:19 Dose: 75 mls/hr Levothyroxine Sodium (Synthroid -) 100 mcg PO 0700 [facility] Last Admin: 12/31/17 06:27 Dose: 100 mcg Ondansetron HCl (Zofran Injection) 4 mg IVPB Q4H PRN PRN Reason: NAUSEA AND/OR VOMITING Last Admin: 12/29/17 19:34 Dose: 4 mg Oxycodone HCl (Roxicodone -) 5 mg PO Q4H PRN PRN Reason: PAIN 1-5 Last Admin: 12/29/17 19:38 Dose: 5 mg Oxycodone HCl (Roxicodone -) 10 mg PO Q4H PRN PRN Reason: PAIN 6-10 Last Admin: 12/31/17 09:49 Dose: 10 mg - Objective Vital Signs: Vital Signs Temperature 98.8 F 12/31/17 05:43 Pulse Rate 89 12/31/17 05:43 Respiratory Rate 18 12/31/17 05:43 Blood Pressure 120/65 12/31/17 05:43 O2 Sat by Pulse Oximetry (%) 99 12/30/17 09:00 Constitutional: Yes: No Distress, Calm Neck: Yes: Supple Cardiovascular: Yes: Regular Rate and Rhythm Respiratory: Yes: Regular, Diminished Gastrointestinal: Yes: Normal Bowel Sounds, Soft Edema: No Labs: CBC, BMP 12/30/17 07:25 12/30/17 07:25 INR, PTT INR 0.99 (0.83-1.09) 12/28/17 11:10 Problem List - Problems (1) Hypothyroidism Code(s): E03.9 - HYPOTHYROIDISM, UNSPECIFIED Qualifiers: Hypothyroidism type: unspecified Qualified Code(s): E03.9 - Hypothyroidism , unspecified (2) Abnormal EKG Code(s): R94.31 - ABNORMAL ELECTROCARDIOGRAM [ECG] [EKG] (3) Femur fracture, right Code(s): S72.91XA - UNSP FRACTURE OF RIGHT FEMUR, INIT FOR CLOS FX Qualifiers: Encounter type: initial encounter Fracture type: closed Assessment/Plan 1. POD#2 right femur ORIF with an intra medullary lanre, Long Gamma Nail 2. Hypothyroidism 3. Abnormal ECG P: 1. Analgesia as needed, DVT prophylaxis 2. WBAT, PT as tolerated, d/c planning->SNF
[2017-12-31] MEDS: ONDANSETRON 4 MG/2 ML VIAL IVPB PRN (12:23)
[2017-12-31 14:29] VITALS: BP 107/58; PULSE 102; TEMP 100
[2017-12-31] MEDS: ACETAMINOPHEN 325 MG TABLET (FP) PO PRN (14:49)
--- NOTE | 2017-12-31 18:18 | DS ---
Physical Examination Vital Signs: Vital Signs Temperature 100.0 F H 12/31/17 14:27 Pulse Rate 102 H 12/31/17 14:27 Respiratory Rate 18 12/31/17 05:43 Blood Pressure 107/58 L 12/31/17 14:27 O2 Sat by Pulse Oximetry (%) 98 12/31/17 09:00 HENT: Yes: Atraumatic Neck: Yes: Supple Cardiovascular: Yes: Regular Rate and Rhythm Respiratory: Yes: CTA Bilaterally Gastrointestinal: Yes: Normal Bowel Sounds Extremities: Yes: Other (Rlex surgery site clean) Edema: Yes Edema: RLE: 1+ Peripheral Pulses WNL: Yes Labs: CBC, BMP 12/30/17 07:25 12/30/17 07:25 Discharge Summary Reason For Visit: FRACTURE OF RIGHT FEMUR Current Active Problems Abnormal EKG (Acute) Femur fracture, right (Acute) Hypothyroidism (Acute) Pre-operative cardiovascular examination (Acute) Condition: Fair - Instructions - Home Medications Comprehensive Discharge Medication List: Ambulatory Orders Alendronate Sodium [Binosto] 70 mg PO WEEKLY 12/29/17 Levothyroxine [Synthroid -] 100 mcg PO DAILY 12/29/17 Enoxaparin [Lovenox -] 40 mg SQ DAILY disp.syrin 12/30/17 mi snf
== END 2017-12-31 18:34 | DRG 482 ==
LOC: JER 10:41 → JERBED 12:46 → J6S 22:35
PROVIDERS: ADMIT Internal Medicine; ATTEND Internal Medicine
PROC: 0QS806Z Reposition Right Femoral Shaft with Intramedullary Internal Fixation Device, Open Approach (ICD-10-PCS; principal; 2017-12-29 14:30)
DX: S72.301A Unspecified fracture of shaft of right femur, initial encounter for closed fracture (principal); M81.0 Age-related osteoporosis without current pathological fracture; E03.9 Hypothyroidism, unspecified; W01.0XXA Fall on same level from slipping, tripping and stumbling without subsequent striking against object, initial encounter; Y93.89 Activity, other specified; Y92.038 Other place in apartment as the place of occurrence of the external cause; Y99.8 Other external cause status; E78.5 Hyperlipidemia, unspecified; M15.9 Polyosteoarthritis, unspecified; R94.31 Abnormal electrocardiogram [ECG] [EKG]
CPT/HCPCS: 36415; 71045-TC-FY; 73523-TC-FY; 73552-TC-RT-FY; 73560-TC-RT-FY; 80053; 81003; 82550; 82553; 84439; 84443; 84484; 85025; 85610; 85730; 86850; 86900; 86901; 87086; 93005; 93010; 94760; 97116-GP; 97162-GP; 99285-25; J0131; J1644; J7030

== ENCOUNTER 2024-05-21 16:05 | Emergency (ER) | payer OTHER ==
[2024-05-21 16:13] VITALS: RESP 16; BMI 31.9
[2024-05-21] MEDS ORDERED: ACETAMINOPHEN 500 MG TABLET (FP) ONE (17:34)
[2024-05-21 17:40] LABS: EOS % 5.6 % (0-4.5); HEMATOCRIT 36.7 % (32.4-45.2); HEMOGLOBIN 12.3 GM/dL (10.7-15.3); MCH 27.1 pg (25.7-33.7); MCHC 33.4 g/dl (32.0-36.0); MEAN CELL VOLUME 81.1 fl (80-96); MEAN PLT VOLUME 7.6 fl (7.5-11.1); MONO % 9.8 % (3.8-10.2); NEUT % 60.6 % (42.8-82.8); PLATELET COUNT 232 10^3/uL (134-434); RBC 4.53 M/mm3 (3.60-5.2); RDW 14.2 % (11.6-15.6); WHITE BLOOD COUNT 10.8 K/mm3 (4.0-10.0)
[2024-05-21] MEDS: ACETAMINOPHEN 500 MG TABLET (FP) PO ONE (17:46)
[2024-05-21 18:00] LABS: PROTHROMBIN TIME (PATIENT) 10.9 SEC (9.7-13.0)
[2024-05-21 18:02] LABS: ACTIVATED PTT 30.6 SECONDS (25.2-36.5)
[2024-05-21 18:04] LABS: POTASSIUM 4.1 mmol/L (3.5-5.1)
[2024-05-21 18:07] LABS: CALCIUM 8.8 mg/dL (8.5-10.1)
[2024-05-21 18:08] LABS: ALBUMIN 3.8 g/dl (3.4-5.0); BLOOD UREA NITROGEN 23.9 mg/dL (7-18)
[2024-05-21 18:12] LABS: BILIRUBIN,TOTAL 0.4 mg/dL (0.2-1); TOT PROT 7.9 g/dl (6.4-8.2)
[2024-05-21 22:54] VITALS: BP 116/59; PULSE 68; TEMP 98.7
== END 2024-05-22 00:18 | disposition home or self-care (01) ==
LOC: JER 16:05
DX: S20.211A Contusion of right front wall of thorax, initial encounter (principal); W01.198A Fall on same level from slipping, tripping and stumbling with subsequent striking against other object, initial encounter; Y93.01 Activity, walking, marching and hiking
CPT/HCPCS: 36415; 70450-TC; 71045-TC-FY; 72125-TC; 80053; 84484; 85025; 85610; 85730; 86850; 86900; 86901; 93005; 93010; 99285-25